=== PATIENT | female | born 1965 | race Caucasian/White ===

== ENCOUNTER 2017-07-28 11:00 | Inpatient (IN) | payer MEDICARE, OTHER ==
[~2017-07-28] VITALS: Ht 175.3 cm; Wt 97.7 kg
[2017-07-28] MEDS ORDERED: pantoprazole IV 80 MG in normal saline 100ml IV soln 100 ML IV ONE (12:30)
[2017-07-28] MEDS ORDERED: normal saline 1000ML IV soln IV ONE (12:30)
[2017-07-28] MEDS ORDERED: pantoprazole 40MG/NS 100ML BAG 100 ML IV SCH ×2 (12:40→21:00)
[2017-07-28 12:46] LABS: BASOPHILS % (AUTO) 0 % (0-1); EOSINOPHILS # (AUTO) 0.3 X10'3 (0-0.9); EOSINOPHILS % (AUTO) 1.6 % (0-6); HEMATOCRIT 23.8 % (35.0-45.0); HEMOGLOBIN 8.4 g/dl (12.0-16.0); LYMPHOCYTES # (AUTO) 1.2 X10'3 (1.1-4.8); LYMPHOCYTES % (AUTO) 5.5 % (21-51); MEAN CORPUSCULAR HGB CONC 35.1 % (33.0-36.5); MEAN CORPUSCULAR VOLUME 91.2 FL (78-98); MEAN PLATELET VOLUME 7.1 FL (7.4-10.4); MONOCYTES # (AUTO) 0.5 X10'3 (0-0.9); MONOCYTES % (AUTO) 2.1 % (2-12); NEUTROPHILS # (AUTO) 19.6 X10'3 (1.8-7.7); NEUTROPHILS % (AUTO) 90.8 % (42-75); PLATELET COUNT 412 X10'3 (140-440); RED BLOOD COUNT 2.61 X10'6 (4.20-5.60); RED CELL DISTRIBUTION WIDTH 13.2 % (11.5-14.5); WHITE BLOOD COUNT 21.6 X10'3 (4.5-11.0)
[2017-07-28 12:56] LABS: PARTIAL THROMBOPLASTIN TIME 21 SECONDS (22-32); PROTHROMBIN TIME 10.7 SECONDS (9.0-12.0)
[2017-07-28 13:00] LABS: ALANINE AMINOTRANSFERASE 24 U/L (12-78); ALBUMIN 3.1 G/DL (3.4-5.0); ALBUMIN/GLOBULIN RATIO 0.9 (1.1-1.5); ALKALINE PHOSPHATASE 57 IU/L (46-116); ANION GAP 10 (8-16); ASPARTATE AMINO TRANSFERASE 8 U/L (10-37); BILIRUBIN,TOTAL 0.2 MG/DL (0.1-1.0); BLOOD UREA NITROGEN 75 MG/DL (7-18); BUN/CREATININE RATIO 69.4 (6.6-38.0); CALCIUM 8.6 MG/DL (8.5-10.1); CHLORIDE 107 MMOL/L (99-107); CREATININE 1.08 MG/DL (0.40-0.90); GLUCOSE 112 MG/DL (70-104); POTASSIUM 3.8 MMOL/L (3.5-5.1); SODIUM 143 MMOL/L (135-145); TOTAL CARBON DIOXIDE 25.7 MMOL/L (24-32); TOTAL PROTEIN 6.4 G/DL (6.4-8.2); eGFR 53 ML/MIN
[2017-07-28] MEDS: pantoprazole 40MG/NS 100ML BAG 100 ML IV SCH ×2 (13:23→22:29)
[2017-07-28 13:59] LABS: CLARITY,URINE SLIGHTLY CLOUDY (Clear); COLOR,URINE YELLOW (Yellow); GLUCOSE, URINE NEGATIVE (Neg); KETONES,URINE TRACE mg/dl (Neg); LEUKOCYTE ESTERASE ,URINE NEGATIVE (Neg); NITRITES, URINE NEGATIVE (Neg); OCCULT BLOOD,URINE MODERATE (Neg); PROTEIN,URINE NEGATIVE (Neg); UROBILINOGEN,URINE 0.2 E.U/dL (0.2-1.0)
[2017-07-28 14:04] LABS: UA COLLECTION TYPE CLN CATCH MIDSTREAM
[2017-07-28 14:05] LABS: BACTERIA,URINE NONE SEEN /HPF (Neg); RBC,URINE 0-2 /HPF (0-2); WBC,URINE NONE SEEN /HPF (0-4)
[2017-07-28 14:06] LABS: HYALINE CASTS 0-3 /LPF (NEGATIVE); MUCUS STRANDS FEW /LPF (Neg); SQUAMOUS EPITHELIAL CELL,UR FEW /LPF (FEW)
[2017-07-28 14:09] LABS: URINE AMPHETAMINE SCREEN NEGATIVE (Neg); URINE BARBITUATE SCREEN NEGATIVE (Neg); URINE BENZODIAZEPINES SCREEN NEGATIVE (Neg); URINE CANNABINOID SCREEN NEGATIVE (Neg); URINE COCAINE SCREEN NEGATIVE (Neg); URINE METHADONE SCREEN NEGATIVE (Neg); URINE OPIATE SCREEN POSITIVE (Neg); URINE PHENCYCLIDINE SCREEN NEGATIVE (Neg)
[2017-07-28] MEDS ORDERED: GABA-532 PO (14:20)
[2017-07-28] MEDS ORDERED: HYDR-565 PO (14:20)
[2017-07-28] MEDS ORDERED: LISI-600 PO (14:20)
[2017-07-28] MEDS ORDERED: CYCL-1 PO ×2 (14:20→16:21)
[2017-07-28] MEDS ORDERED: ATOR10TA87 PO (14:20)
[2017-07-28] MEDS ORDERED: magnesium hydroxide 30ml (MOM) UD suspension PO PRN (16:20)
[2017-07-28] MEDS ORDERED: acetaminophen 325mg tablet PO PRN (16:20)
[2017-07-28] MEDS ORDERED: mag hydrox/Alum hydrox/simeth 30ml oral suspension PO PRN (16:20)
[2017-07-28] MEDS ORDERED: ondansetron/PF 4mg/2ml inj IV PRN (16:20)
[2017-07-28] MEDS ORDERED: pantoprazole 40MG/NS 100ML BAG 100 ML IV ONE (16:30)
[2017-07-28] MEDS: normal saline 1000ml 1,000 ML IV SCH (18:30)
[2017-07-28] MEDS ORDERED: TRAZ-143 PO (19:27)
[2017-07-29] VITALS (27 sets, daily range): BP systolic 98–138; BP diastolic 44–82
[2017-07-29] MEDS ORDERED: traZODone 50mg tablet PO SCH
[2017-07-29] MEDS ORDERED: traZODone 50mg tablet PO ONE (00:10)
[2017-07-29] MEDS: pantoprazole 40MG/NS 100ML BAG 100 ML IV SCH ×5 (00:56→22:21)
[2017-07-29] MEDS: normal saline 1000ml 1,000 ML IV SCH (02:17)
[2017-07-29 04:29] LABS: BASOPHILS % (AUTO) 0.4 % (0-1); EOSINOPHILS # (AUTO) 0.1 X10'3 (0-0.9); EOSINOPHILS % (AUTO) 0.6 % (0-6); LYMPHOCYTES # (AUTO) 3.6 X10'3 (1.1-4.8); LYMPHOCYTES % (AUTO) 35.3 % (21-51); MEAN CORPUSCULAR HEMOGLOBIN 31.3 PG (27.0-31.0); MEAN CORPUSCULAR VOLUME 92.1 FL (78-98); MEAN PLATELET VOLUME 7.2 FL (7.4-10.4); MONOCYTES # (AUTO) 0.8 X10'3 (0-0.9); MONOCYTES % (AUTO) 7.6 % (2-12); NEUTROPHILS # (AUTO) 5.7 X10'3 (1.8-7.7); NEUTROPHILS % (AUTO) 56.1 % (42-75); PLATELET COUNT 315 X10'3 (140-440); RED BLOOD COUNT 1.95 X10'6 (4.20-5.60); RED CELL DISTRIBUTION WIDTH 13.6 % (11.5-14.5); WHITE BLOOD COUNT 10.2 X10'3 (4.5-11.0)
[2017-07-29 04:33] LABS: ALBUMIN 2.8 G/DL (3.4-5.0); ANION GAP 10 (8-16); BLOOD UREA NITROGEN 35 MG/DL (7-18); CHLORIDE 115 MMOL/L (99-107); CREATININE 0.92 MG/DL (0.40-0.90); GLUCOSE 109 MG/DL (70-104); POTASSIUM 3.4 MMOL/L (3.5-5.1); SODIUM 147 MMOL/L (135-145); TOTAL CARBON DIOXIDE 22.1 MMOL/L (24-32); eGFR 64 ML/MIN
[2017-07-29 04:44] LABS: HEMATOCRIT 17.9 % (35.0-45.0); HEMOGLOBIN 6.1 g/dl (12.0-16.0)
[2017-07-29] MEDS ORDERED: diphenhydrAMINE 50 mg/ml inj IV ONE (04:55)
[2017-07-29] MEDS ORDERED: acetaminophen 325mg tablet PO ONE (04:55)
[2017-07-29] MEDS ORDERED: normal saline 1000ml 1,000 ML IV SCH (06:54)
[2017-07-29] MEDS ORDERED: MIDAZolam 5mg/5ml vial IV PRN (06:55)
[2017-07-29] MEDS ORDERED: fentaNYL/PF 50MCG/1 ML 2ML syringe IV PRN (06:55)
[2017-07-29] MEDS ORDERED: LIDOcaine Viscous 15ml cup PO ONE (06:55)
[2017-07-29] MEDS ORDERED: simethicone 40mg/0.6ml oral drops 30ml MC ONE (06:55)
[2017-07-29] MEDS ORDERED: fentaNYL/PF 50MCG/1 ML 2ML syringe ONE ×2 (07:43→07:44)
[2017-07-29] MEDS ORDERED: MIDAZolam 5mg/ml 2ml vial ONE (07:44)
[2017-07-29] MEDS ORDERED: LIDOcaine Viscous 15ml cup ONE (07:44)
[2017-07-29 10:50] LABS: MEAN CORPUSCULAR HEMOGLOBIN 31.8 PG (27.0-31.0); MEAN CORPUSCULAR HGB CONC 34.4 % (33.0-36.5); MEAN CORPUSCULAR VOLUME 92.5 FL (78-98); MEAN PLATELET VOLUME 7.2 FL (7.4-10.4); PLATELET COUNT 312 X10'3 (140-440); RED BLOOD COUNT 1.91 X10'6 (4.20-5.60); RED CELL DISTRIBUTION WIDTH 14.3 % (11.5-14.5); WHITE BLOOD COUNT 8.5 X10'3 (4.5-11.0)
[2017-07-29 10:53] LABS: HEMATOCRIT 17.6 % (35.0-45.0); HEMOGLOBIN 6.1 g/dl (12.0-16.0)
[2017-07-29] MEDS: HYDROcodone/acetaminophen 10/325mg tab PO PRN ×2 (16:02→22:27)
[2017-07-29] MEDS ORDERED: potassium Cl 20 mEq SR tablet PO PRN (17:50)
[2017-07-29] MEDS ORDERED: magnesium 2GM in 50ml NS 50 ML IV PRN (17:50)
[2017-07-29] MEDS ORDERED: magnesium Cl slow-release 64mg tablet PO PRN (17:50)
[2017-07-29] MEDS ORDERED: potassium Cl 40MEQ/NS 500ml 500 ML IV PRN ×2 (17:50)
[2017-07-29] MEDS ORDERED: magnesium 4gm in 100ml NS 100 ML IV PRN (17:50)
[2017-07-29] MEDS: potassium Cl 20 mEq SR tablet PO PRN ×2 (19:07→23:59)
[2017-07-29 20:12] LABS: HEMATOCRIT 23.7 % (35.0-45.0); HEMOGLOBIN 8.3 g/dl (12.0-16.0); MEAN CORPUSCULAR HEMOGLOBIN 31.1 PG (27.0-31.0); MEAN CORPUSCULAR HGB CONC 34.9 % (33.0-36.5); MEAN CORPUSCULAR VOLUME 89.3 FL (78-98); MEAN PLATELET VOLUME 6.8 FL (7.4-10.4); PLATELET COUNT 305 X10'3 (140-440); RED BLOOD COUNT 2.66 X10'6 (4.20-5.60); RED CELL DISTRIBUTION WIDTH 15.4 % (11.5-14.5)
[2017-07-29] MEDS: traZODone 50mg tablet PO SCH ×2 (22:20→22:21)
[2017-07-30 03:00] VITALS: BP 109/49
[2017-07-30] MEDS: pantoprazole 40MG/NS 100ML BAG 100 ML IV SCH ×2 (03:48→06:00)
[2017-07-30 05:30] LABS: BASOPHILS % (AUTO) 0.5 % (0-1); EOSINOPHILS # (AUTO) 0.2 X10'3 (0-0.9); EOSINOPHILS % (AUTO) 1.8 % (0-6); HEMOGLOBIN 7.8 g/dl (12.0-16.0); LYMPHOCYTES # (AUTO) 3.3 X10'3 (1.1-4.8); LYMPHOCYTES % (AUTO) 35.9 % (21-51); MEAN CORPUSCULAR HEMOGLOBIN 31.7 PG (27.0-31.0); MEAN CORPUSCULAR HGB CONC 35.6 % (33.0-36.5); MEAN PLATELET VOLUME 7.5 FL (7.4-10.4); MONOCYTES # (AUTO) 0.6 X10'3 (0-0.9); MONOCYTES % (AUTO) 6.9 % (2-12); NEUTROPHILS # (AUTO) 5.1 X10'3 (1.8-7.7); NEUTROPHILS % (AUTO) 54.9 % (42-75); PLATELET COUNT 251 X10'3 (140-440); RED BLOOD COUNT 2.46 X10'6 (4.20-5.60); RED CELL DISTRIBUTION WIDTH 15.2 % (11.5-14.5); WHITE BLOOD COUNT 9.3 X10'3 (4.5-11.0)
[2017-07-30 05:35] LABS: HEMATOCRIT 21.9 % (35.0-45.0)
[2017-07-30 05:50] LABS: ALBUMIN 2.8 G/DL (3.4-5.0); ANION GAP 8 (8-16); BLOOD UREA NITROGEN 12 MG/DL (7-18); BUN/CREATININE RATIO 15.2 (6.6-38.0); CALCIUM 8.3 MG/DL (8.5-10.1); CHLORIDE 114 MMOL/L (99-107); CREATININE 0.79 MG/DL (0.40-0.90); GLUCOSE 99 MG/DL (70-104); MAGNESIUM 1.9 MG/DL (1.5-2.4); POTASSIUM 3.9 MMOL/L (3.5-5.1); SODIUM 146 MMOL/L (135-145); TOTAL CARBON DIOXIDE 24.4 MMOL/L (24-32); eGFR 76 ML/MIN
[2017-07-30 07:00] VITALS: BP 114/53
[2017-07-30 10:35] VITALS: BP 138/72
[2017-07-30 10:50] VITALS: BP 106/84
[2017-07-30 11:50] VITALS: BP 126/64
[2017-07-30] MEDS ORDERED: PANT-47 PO (12:29)
[2017-07-30 12:50] VITALS: BP 146/76
== END 2017-07-30 13:30 | disposition home or self-care (01) | DRG 378 ==
LOC: ER 11:01 → ED HOLD 16:17 → EDBEDREQTM 16:24 → EDBEDREQ 07-29 06:36 → EDBEDREQDT 07-29 06:38 → EDBEDREQTM 07-29 06:38 → PCU 3S 07-29 09:32
PROVIDERS: ADMIT Internal Medicine; ATTEND Family Medicine
PROC: 0DB68ZX Excision of Stomach, Via Natural or Artificial Opening Endoscopic, Diagnostic (ICD-10-PCS; principal; 2017-07-29)
PROC: 30233N1 Transfusion of Nonautologous Red Blood Cells into Peripheral Vein, Percutaneous Approach (ICD-10-PCS; 2017-07-29)
PROC: 30233N1 Transfusion of Nonautologous Red Blood Cells into Peripheral Vein, Percutaneous Approach (ICD-10-PCS; 2017-07-30)
DX: K25.4 Chronic or unspecified gastric ulcer with hemorrhage (principal); D62 Acute posthemorrhagic anemia; D72.829 Elevated white blood cell count, unspecified; W18.39XA Other fall on same level, initial encounter; E78.5 Hyperlipidemia, unspecified; M25.511 Pain in right shoulder; M54.9 Dorsalgia, unspecified; T39.395A Adverse effect of other nonsteroidal anti-inflammatory drugs [NSAID], initial encounter; M79.671 Pain in right foot; R55 Syncope and collapse; G89.29 Other chronic pain; I10 Essential (primary) hypertension; Z96.651 Presence of right artificial knee joint; Z79.899 Other long term (current) drug therapy; Z88.8 Allergy status to other drugs, medicaments and biological substances; Z87.891 Personal history of nicotine dependence; Z82.49 Family history of ischemic heart disease and other diseases of the circulatory system; Y93.89 Activity, other specified; Y92.89 Other specified places as the place of occurrence of the external cause; Y99.8 Other external cause status
CPT/HCPCS: 36415; 43239; 70450; 71045; 80048; 80053; 80305; 81001; 83735; 85025; 85027; 85610; 85730; 86885; 86900; 86901; 86920; 87070; 88305; 88342; 96360; 99285; A4620; C9113; G0500; J1200; J2250; J2405; J3010; J7030; P9016